=== PATIENT | male | born 1965 | race Caucasian/White ===

== ENCOUNTER 2018-03-24 23:38 | Emergency (ER) | payer MEDICAID ==
[~2018-03-24] VITALS: Ht 177.8 cm; Wt 65.9 kg
[2018-03-24 23:52] VITALS: Ht 177.8 cm; Wt 65.9 kg
[2018-03-24] MEDS ORDERED: ASPIRIN81 MG (23:54)
[2018-03-24] MEDS ORDERED: LISINOPRIL2.5 MG (23:54)
[2018-03-24] MEDS ORDERED: ZYLOPRIM100 MG (23:54)
[2018-03-25 02:11] VITALS: BP 105/61
== END 2018-03-25 02:10 | disposition short-term general hospital (02) ==
LOC: D.ER 23:38
DX: I60.9 Nontraumatic subarachnoid hemorrhage, unspecified (principal); S01.112A Laceration without foreign body of left eyelid and periocular area, initial encounter; X58.XXXA Exposure to other specified factors, initial encounter; Y93.89 Activity, other specified; Y92.019 Unspecified place in single-family (private) house as the place of occurrence of the external cause; G40.909 Epilepsy, unspecified, not intractable, without status epilepticus; I10 Essential (primary) hypertension

== ENCOUNTER 2018-04-11 13:27 | Emergency (ER) | payer MEDICAID ==
[~2018-04-11] VITALS: Ht 177.8 cm; Wt 60.0 kg
[~2018-04-11 13:27] MED LIST: ASPIRIN81 MG; LISINOPRIL2.5 MG; ZYLOPRIM100 MG
[2018-04-11 13:34] VITALS: Ht 177.8 cm; Wt 60.0 kg
[2018-04-11 14:14] LABS: BASOPHILS 0.5 % (0-2); EOSINOPHILS 0.8 % (0-7); HEMATOCRIT 33.1 % (42.0-54.0); HEMOGLOBIN 11.1 g/dL (13.5-17.5); IMMATURE GRANULOCYTES 0.2 % (0-5); LYMPHOCYTES 12.4 % (15-50); MCH 32.6 pg (26.0-34.0); MCHC 33.5 g/dL (31.0-37.0); MCV 97.1 fL (80.0-100.0); MEAN PLATELET VOLUME 9.4 fL (7.4-10.4); NEUTROPHILS 80.1 % (40-80); PLATELET COUNT 401 10x3/uL (130-400); RBC 3.41 10x6/uL (4.20-6.10); RDW 12.1 % (11.5-14.5); WBC 9.3 10x3/uL (4.8-10.8)
[2018-04-11 14:15] LABS: APPEARANCE CLEAR (CLEAR); BILIRUBIN NEGATIVE (NEGATIVE); COLOR YELLOW (YELLOW); GLUCOSE NEGATIVE (NEGATIVE); KETONE MODERATE mg/dL (NEGATIVE); NITRITE NEGATIVE (NEGATIVE); PROTEIN NEGATIVE (NEGATIVE); SPECIFIC GRAVITY 1.015 (1.005-1.020); UROBILINOGEN NORMAL (NORMAL)
[2018-04-11 14:26] LABS: UDS - AMPHET NEGATIVE QUAL (NEGATIVE); UDS - BARB NEGATIVE QUAL (NEGATIVE); UDS - BENZO NEGATIVE QUAL (NEGATIVE); UDS - COCAINE NEGATIVE QUAL (NEGATIVE); UDS - OPIATE NEGATIVE QUAL (NEGATIVE); UDS - PCP NEGATIVE QUAL (NEGATIVE); UDS - THC NEGATIVE QUAL (NEGATIVE)
[2018-04-11 14:29] LABS: ALBUMIN 3.2 g/dL (3.4-5.0); ANION GAP 14.3 mmol/L (8-16); APTT 27.2 SECONDS (22.8-39.4); BILIRUBIN - TOTAL 0.18 mg/dL (0.2-1.3); CALCIUM 9.1 mg/dL (8.5-10.1); CARBON DIOXIDE 25.5 mmol/L (21.0-32.0); CREATININE - SERUM 1.1 mg/dL (0.6-1.3); INR 0.99 (0.85-1.17); POTASSIUM - SERUM 3.8 mmol/L (3.5-5.1); PROTEIN - SERUM 7.5 g/dL (6.4-8.2); PROTIME 12.7 SECONDS (11.6-15.0)
[2018-04-11 18:35] VITALS: BP 124/67
== END 2018-04-11 18:36 | disposition home or self-care (01) ==
LOC: D.ER 13:27
PROVIDERS: Family Medicine
DX: G40.909 Epilepsy, unspecified, not intractable, without status epilepticus (principal); I10 Essential (primary) hypertension; F17.200 Nicotine dependence, unspecified, uncomplicated

== ENCOUNTER 2019-08-25 16:22 | Emergency (ER) | payer MEDICAID ==
[~2019-08-25] VITALS: Ht 177.8 cm; Wt 65.9 kg
[2019-08-25 16:24] VITALS: Ht 177.8 cm; Wt 65.9 kg
[2019-08-25] MEDS ORDERED: ZYLOPRIM100 MG PO (16:27)
[2019-08-25] MEDS ORDERED: LISINOPRIL20 MG PO (16:28)
[2019-08-25] MEDS ORDERED: VITAMIN D250000 UNIT PO (16:28)
[2019-08-25] MEDS ORDERED: PROPRANOLOL HCL20 MG PO (16:28)
[2019-08-25] MEDS ORDERED: FOLIC ACID1 MG PO (16:29)
[2019-08-25] MEDS ORDERED: LYRICA100 MG PO (16:29)
[2019-08-25] MEDS ORDERED: KEPPRA1000 MG PO (16:30)
[2019-08-25] MEDS ORDERED: BUSPAR10 MG PO (16:30)
[2019-08-25] MEDS ORDERED: PROZAC20 MG PO (16:30)
[2019-08-25] MEDS ORDERED: SPIRIVA18 MCG INH (16:34)
[2019-08-25 17:03] LABS: HEMATOCRIT 32.8 % (42.0-54.0); HEMOGLOBIN 11.2 g/dL (13.5-17.5); LYMPHOCYTES 13.6 % (15-50); MCH 31.3 pg (26.0-34.0); MCHC 34.1 g/dL (31.0-37.0); MCV 91.6 fL (80.0-100.0); MEAN PLATELET VOLUME 10.6 fL (7.4-10.4); NEUTROPHILS 77.9 % (40-80); RBC 3.58 10x6/uL (4.20-6.10); RDW 12.7 % (11.5-14.5); WBC 11.9 10x3/uL (4.8-10.8)
[2019-08-25 17:04] LABS: PLATELET COUNT 247 10x3/uL (130-400)
[2019-08-25 17:24] LABS: ANION GAP 11.7 mmol/L (8-16); CALCIUM 9.6 mg/dL (8.5-10.1); CARBON DIOXIDE 27.5 mmol/L (21.0-32.0); CREATININE - SERUM 1.1 mg/dL (0.6-1.3); POTASSIUM - SERUM 4.2 mmol/L (3.5-5.1)
[2019-08-25 17:31] LABS: BILIRUBIN - TOTAL 0.34 mg/dL (0.2-1.3); PROTEIN - SERUM 7.1 g/dL (6.4-8.2)
[2019-08-25 18:10] VITALS: BP 135/65
== END 2019-08-25 18:10 | disposition home or self-care (01) ==
LOC: D.ER 16:22
PROVIDERS: Family Medicine
DX: Z00.00 Encounter for general adult medical examination without abnormal findings (principal); W19.XXXA Unspecified fall, initial encounter; I10 Essential (primary) hypertension; J44.9 Chronic obstructive pulmonary disease, unspecified; Z72.0 Tobacco use